=== PATIENT | female | born 1960 | race Caucasian/White ===

== ENCOUNTER → 2019-03-16 | Day surgery (SDC) | payer OTHER ==
[~2019-03-16] MED LIST: ACETYL L-CARNI500 MG PO; ALLERGY OTC PO; ARMOUR THYROID90 MG PO; BIEST PO; CALCIUM WITH M1 EAC1 PO; CELEBREX PO; CHERRY EXTRACT PO; CINNAMON500 MG PO; CO Q10200 MG PO; DEXAMETHASONE SOD PHOS 10 MG/1 ML VIAL ONE; DIAZEPAM5 MG PO; ENERGY PO; ESTROGEN PO; FENTANYL CITRATE/PF 100MCG/2 ML INJ ONE; FIBER SUPPLEMENT PO; FRIENDLY FLORA PO; GLUCOSAMIN-CHO1 EACH PO; HAIR, SKIN & N1 EAC1 PO; HYDROCODONE PO; IOPAMIDOL 200 MG/ML 20 ML VIAL IT ONE; LIDOCAINE HCL 1% 30ML-PF VIAL ONE; LIDOCAINE HCL 2% LOCAL INJ 5 ML SDV VIAL INJ ONE; MELOXICAM7.5 MG PO; METHOCARBAMOL750 MG PO; MIDAZOLAM HCL 2 MG/2 ML VIAL ONE; PROGESTERONE100 MG PO; PROPOFOL IV EMULSION 10 MG/ML 20 ML VIAL ONE; TESTOSTERONE TOP; TURMERIC PO; VIT B12 PO; VIT D3 PO; [UNRECOGNIZED DRUG - OTHER] PO; [UNRECOGNIZED DRUG - OTHER] PO; [UNRECOGNIZED DRUG - OTHER] PO; [UNRECOGNIZED DRUG - OTHER] PO; [UNRECOGNIZED DRUG - OTHER] PO
--- OUTSIDE RECORDS SUMMARY | 2019-03-16 05:13 | XMS REPORT | Clinical Summary ---
Author Author [facility] Organization [facility] Address Unknown Phone Unavailable Care Team Providers Care Dependency Case Manager Name Role Phone Arabella Rush MD PCP Allergies No Known Allergies Medications End Date Status Medication Sig Dispensed Refills Start Date Active thyroid, pork, (ARMOUR Take 60 mg by 0 THYROID) 60 mg tablet mouth daily. Active FIRST-PROGESTERONE VGS Insert into 0 100 VAGL the vagina. Active testosterone 10 mg/0.5 Place 40 mg 0 gram /actuation gel in on the skin metered-dose pump daily. Active meloxicam (MOBIC) 15 mg Take 15 mg by 0 tablet mouth daily. Active acyclovir (ZOVIRAX) 400 Take 400 mg 0 MG tablet by mouth every 4 (four) hours as needed. Active methocarbamol (ROBAXIN) Take 750 mg 0 750 MG tablet by mouth as needed for muscle spasms. Active THEANINE ORAL Take 200 mg 0 by mouth 2 (two) times a day. Active cholecalciferol, vitamin Take 2,000 0 D3, (VITAMIN D3) 2,000 Units by unit capsule capsule mouth daily. Active cyanocobalamin-cobamamide Place under 0 (B12) 5,000-100 mcg the tongue. lozenge Active L. rhamnosus GG/inulin Take by 0 (CULTURELLE PROBIOTICS mouth. ORAL) 02/02/2019 Discontinued terbinafine HCl (LamiSIL) Take 250 mg 0 250 mg tablet by mouth daily. 01/27/2019 Discontinued diazePAM (VALIUM) 2 MG Take 1 tablet 30 tablet 0 tabletIndications: TMJ (2 mg total) 8 (temporomandibular joint by mouth syndrome) every 6 (six) hours as needed for anxiety for up to 30 days. 02/02/2019 Discontinued cyanocobalamin, vitamin Take 500 mcg 0 B-12, 1,000 mcg/mL drops by mouth. 03/02/2019 diazePAM (VALIUM) 2 MG TAKE 1 TABLET 30 tablet 0 tabletIndications: TMJ BY MOUTH 9 (temporomandibular joint EVERY 6 HOURS syndrome) NEEDED FOR ANXIETY FOR UP TO 30 DAYS 02/07/2019 predniSONE (DELTASONE) 20 Take 2 10 tablet 0 mg tabletIndications: tablets (40 9 Seasonal allergic mg total) by rhinitis due to pollen mouth daily for 5 days. Active Problems Problem Noted Date Primary adenocarcinoma of right lung 11/01/2018 Malignant melanoma of left upper extremity including shoulder 11/01/2018 Post-menopausal bleeding 07/09/2016 Encounters Care Team Description Date Type Specialty Tay Gayle MD Seasonal allergic rhinitis due to pollen (Primary Dx) 02/02/2019 Office Visit Internal Medicine Bharti Ricardo 02/02/2019 Telephone Family Medicine Arabella Rush MD TMJ (temporomandibular joint syndrome) 01/27/2019 Refill Internal Medicine Arabella Rush MD Left sided abdominal pain (Primary Dx); Acquired hypothyroidism; TMJ (temporomandibular joint syndrome) 11/01/2018 Office Visit Internal Medicine after 03/15/2018 Family History Medical History Relation Name Comments Emphysema Father Breast cancer Paternal Aunt Relation Name Status Comments Father Mother Paternal Aunt Social History Date Tobacco Use Types Packs/Day Years Used Never Smoker Smokeless Tobacco: Never Used Alcohol Use Drinks/Week oz/Week Comments Yes occasional Sex Assigned at Date Recorded Not on file Industry Job Start Date Occupation Not on file Not on file Not on file Travel End Travel History Travel Start No recent travel history available. Last Filed Vital Signs Time Taken Vital Sign Reading 02/02/2019 3:43 PM [employer] Blood Pressure 121/81 02/02/2019 3:43 PM [employer] Pulse 89 02/02/2019 3:43 PM [employer] Temperature 36.7 C (98 F) 11/01/2018 8:10 AM [employer] Respiratory Rate 16 02/02/2019 3:43 PM [employer] Oxygen Saturation 98% - Inhaled Oxygen - Concentration 02/02/2019 3:43 PM [employer] Weight 59 kg (130 lb) 02/02/2019 3:43 PM [employer] Height 165.1 cm (5' 5") 02/02/2019 3:43 PM [employer] Body Mass Index 21.63 Plan of Treatment Health Maintenance Due Date Last Done Comments CERVICAL CANCER SCREENING 06/29/2018 06/29/2015 COLON CANCER SCREENING 11/01/2019 Postponed from 2008 (Patient Refused) INFLUENZA VACCINE 11/01/2019 Postponed from 06/29/2019 (Patient Refused) SHINGLES VACCINES (#1) 11/01/2019 Postponed from 2008 (Patient Refused) BREAST CANCER SCREENING 09/29/2020 09/29/2018 Procedures Comments Procedure Name Priority Date/Time Associated Diagnosis XR ABDOMEN 2 VW AP W Routine 11/01/2018 Left sided abdominal pain UPRIGHT AND/OR DECUBITUS 9:02 AM [employer] after 03/15/2018 Results * XR Abdomen 2 Vw Ap W Upright And/Or Decubitus (11/01/2018 9:02 AM [employer] [facility]) Narrative Performed At XR ABDOMEN 2 VW AP W UPRIGHT AND OR DECUBITUS [facility] CLINICAL INDICATION:R10.9 Unspecified abdominal pain, Abd painunspecified COMPARISON:None. IMPRESSION: Air seen within nondistended loops of large and small bowel. Calcific density in the right upper quadrant abdomen likely relates to a gallstone. The bowel gas pattern is normal. Osseous structures are intact. [id number] Procedure Note Hm Interface, Radiology Results Incoming - 11/01/2018 6:35 PM [employer] [facility] XR ABDOMEN 2 VW AP W UPRIGHT AND OR DECUBITUS CLINICAL INDICATION: R10.9 Unspecified abdominal pain, Abd pain unspecified COMPARISON: None. IMPRESSION: Air seen within nondistended loops of large and small bowel. Calcific density in the right upper quadrant abdomen likely relates to a gallstone. The bowel gas pattern is normal. Osseous structures are intact. [facility]-[id number] Performing Organization Address City/State/Zipcode Phone Number [facility] [id number] [place] [address] after 03/15/2018 Insurance Payer Benefit Subscriber ID Type Phone Address Plan / Group [facility] xxxxxxxxx HMO/PPO THCARE CHOICE/CHO ICE + (Home) [place] [address] Advance Directives Patient has advance care planning documents on file. For more information, levi hernandez contact: Andrew Rivera [address] [place] [address]
--- OUTSIDE RECORDS SUMMARY | 2019-03-16 05:14 | XMS REPORT ---
Author Author [facility] Address Unknown Phone Unavailable Care Team Providers Care Windows And Doors Installer Name Role Phone Unavailable Unavailable Problems This patient has no known problems. Allergies, Adverse Reactions, Alerts This patient has no known allergies or adverse reactions. Medications This patient has no known medications.
[2019-03-16 07:00] VITALS: BP 135/73
== END | disposition home or self-care (01) ==
LOC: OR 05:00
PROVIDERS: ATTEND Physical Medicine & Rehabilitation Pain Medicine
DX: M54.12 Radiculopathy, cervical region (principal); M47.812 Spondylosis without myelopathy or radiculopathy, cervical region; G89.29 Other chronic pain; M79.18 Myalgia, other site; K21.9 Gastro-esophageal reflux disease without esophagitis; F32.9 Major depressive disorder, single episode, unspecified; F41.9 Anxiety disorder, unspecified; Z01.810 Encounter for preprocedural cardiovascular examination; Z85.118 Personal history of other malignant neoplasm of bronchus and lung
CPT/HCPCS: 64479; 64480; 93005; J1100; J2001 ×2; J2250; J2704; Q9967; 77003

== ENCOUNTER → 2020-05-30 | Day surgery (SDC) | payer OTHER ==
[~2020-05-30] MED LIST changes: -DEXAMETHASONE SOD PHOS 10 MG/1 ML VIAL ONE; +ONDANSETRON HCL INJ 2MG/ML 2ML 2 MG/ML VIAL ONE; +TRIAMCINOLONE ACET 40 MG/ML VIAL ONE
[2020-05-30 07:55] VITALS: BP 114/73
== END | disposition home or self-care (01) ==
LOC: OR 06:14
PROVIDERS: ATTEND Physical Medicine & Rehabilitation Pain Medicine
DX: M47.892 Other spondylosis, cervical region (principal); M54.12 Radiculopathy, cervical region; E03.9 Hypothyroidism, unspecified; K21.9 Gastro-esophageal reflux disease without esophagitis; F32.9 Major depressive disorder, single episode, unspecified; F41.9 Anxiety disorder, unspecified; Z01.810 Encounter for preprocedural cardiovascular examination; Z01.812 Encounter for preprocedural laboratory examination; Z11.59 Encounter for screening for other viral diseases; Z85.118 Personal history of other malignant neoplasm of bronchus and lung; Z85.828 Personal history of other malignant neoplasm of skin
CPT/HCPCS: 64490; 64491; 64492; 93005; J2001 ×2; J2250; J2405; J2704; J3010; J3301; Q9967; U0002; 77003